=== PATIENT | male | born 1960 | race Caucasian/White ===

== ENCOUNTER 2024-03-18 08:50 | Outpatient (CLI) | payer OTHER, SELFPAY ==
--- NOTE | ~2024-03-18 | CT_ITS ---
EXAMINATION: CT abdomen pelvis wo/w con DATE: 03/18/2024 09:33 INDICATION: Acute right flank pain TECHNIQUE: Computed tomography (CT) of the abdomen and pelvis was performed without intravenous contr ast. Automated exposure control and iterative reconstruction technique were employed. Exam dose: 168 8.05 mGy-cm total exam DLP. COMPARISON: None. FINDINGS: Normal heart size. No pericardial or pleural effusion. The lung bases are clear of infiltrate or consolidation. 3 x 5.8 pleural based opacity, left lower lobe. 4 mm pleural based opacity, right lower lobe. 5 mm indeterminate right hepatic hypoattenuating lesion, too small to definitively characterize. The liver, spleen, pancreas and adrenal glands are otherwise unremarkable. The gallbladder is unremarkable No bile duct or pancreatic duct dilatation. 10 mm exophytic renal cyst. No urinary tract calculus or hydroureteronephrosis. No urinary bladder ma ss lesion. Normal appendix. Diverticulosis of the colon; no evidence of diverticulitis. No bowel obstruction o r intraperitoneal free air. There is extensive calcification of the abdominal aorta. No abdominal aortic aneurysm. No intraperi toneal or retroperitoneal or pelvic mass lesion or lymphadenopathy or ascites. Small left inguinal fat containing hernia. Normal appendix. Diverticula of left and right colon; no evidence of diverticulitis. No bowel obstruction or intraper itoneal free air. 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 Bilateral fat containing inguinal hernias. IMPRESSION: No urinary tract calculus or hydroureteronephrosis Normal appendix Diverticulosis of the colon 5 mm indeterminate right hepatic hypoattenuating lesion, too small to definitively characterize 10 mm right renal cyst Bilateral fat-containing inguinal hernias Reviewed, dictated and finalized at [facility]. Reviewed, dictated and finalized at [facility]. IMPRESSION: No urinary tract calculus or hydroureteronephrosis Normal appendix Diverticulosis of the colon 5 mm indeterminate right hepatic hypoattenuating lesion, too small to definitiv luc characterize 10 mm right renal cyst Bilateral fat-containing inguinal hernias
[2024-03-18 09:12] LABS: Estimated Glomerular Filt Rate > 60
== END 2024-03-18 08:51 ==
DX: K57.30 Diverticulosis of large intestine without perforation or abscess without bleeding (principal); N28.1 Cyst of kidney, acquired; K40.20 Bilateral inguinal hernia, without obstruction or gangrene, not specified as recurrent
CPT/HCPCS: 74178; Q9967